=== PATIENT | female | born 1975 ===

== ENCOUNTER 2017-06-07 06:27 | Observation (INO) | payer MEDICAID ==
[2017-05-31 13:24] VITALS: BMI 47.4
[2017-06-07] MEDS ORDERED: ePHEDrine 50 mg/ml Inj ONE ×2 (07:17→08:43)
[2017-06-07] MEDS ORDERED: Midazolam 2 MG/2 ML VIAL ONE (07:17)
[2017-06-07] MEDS ORDERED: Propofol 10 mg/ml Inj (20 ML) ONE ×2 (07:17→09:56)
[2017-06-07] MEDS ORDERED: Rocuronium 10 mg/ml (5 ml) ONE (07:18)
[2017-06-07] MEDS ORDERED: Lidocaine 4% (Laryng-O-Jet) Kit MM ONE (07:18)
[2017-06-07] MEDS ORDERED: Succinylcholine 200 mg/10 ml Inj IV ONE (07:18)
[2017-06-07] MEDS ORDERED: Bupivacaine 0.5% Inj(30mL) ONE (07:37)
[2017-06-07] MEDS ORDERED: Lactated Ringer's 1,000 ML IV ONE ×2 (07:50→09:55)
[2017-06-07] MEDS ORDERED: Dexamethasone 4 mg/1 ml ONE (09:01)
[2017-06-07] MEDS ORDERED: Desflurane Inhalation Anesthetic Liq (240 ml) ONE (09:01)
[2017-06-07] MEDS ORDERED: Neostigmine Methylsulfate 3mg/3ml Syringe IV ONE (09:59)
[2017-06-07] MEDS ORDERED: Naloxone 0.4 mg/ml Inj (Adult) IVP PRN (10:37)
[2017-06-07] MEDS ORDERED: Oxycodone/Acetaminophen 5/325 mg Tab PO PRN (10:51)
[2017-06-07] MEDS ORDERED: ceFAZolin 2 GM in Sodium Chloride 0.9% 100 ML IVPB SCH (11:00)
[2017-06-07] MEDS ORDERED: HYDROmorphone 0.5 mg/0.5 ml ISec ONE (11:08)
[2017-06-07] MEDS: HYDROmorphone 0.5 mg/0.5 ml ISec IVP PRN ×2 (11:10→12:35)
--- NOTE | 2017-06-07 13:37 | OP ---
PROCEDURE DATE: PREOPERATIVE DIAGNOSES: Symptomatic fibroid uterus, pelvic pressure, and pain. POSTOPERATIVE DIAGNOSES: Symptomatic fibroid uterus, pelvic pressure, and pain, endometriosis, bladder adhesions, 3 previous deliveries. OPERATIONS PERFORMED: Robotic-assisted hysterectomy and cystoscopy. SURGEON: Mundo Quiros MD FRONT OFFICE DIRECTOR: Ruperto Schneider DO, he was instrumental in the care of the patient. He helped to create exposure, he was helpful in obtaining hemostasis and extract some of the specimen and closure of the patient. Procedure would not have been possible without his assistance. TYPE OF ANESTHESIA: General. ANESTHESIA ADMINISTERED BY: Bhavna Mcdonald MD OPERATIVE FINDINGS: Fibroid uterus, normal ovaries, tubal remnants from previous tubal ligation and endometriosis. CYSTOSCOPY FINDINGS: The dome of the bladder was intact. There is bilateral ureteral efflux of urine. No foreign bodies or masses noted. ESTIMATED BLOOD LOSS: 50 mL. URINE OUTPUT: Duffy catheter put out approximately 600 mL of clear urine. IV FLUID INTAKE: The patient received approximately 1200 mL of D5 in OR intraoperatively. COMPLICATIONS: There were no complications. DESCRIPTION OF PROCEDURE: After informed consent was obtained, the patient was taken to the operating room, where she was then prepped and draped in normal sterile fashion. A weighted-speculum was then inserted into the vagina, cervix was visualized, and gently dilated. The [employer] uterine manipulator was inserted into the uterine cavity. Attention was then turned to the urethra where a Duffy catheter was inserted to monitor the patient's urinary output. Attention was then turned to the abdomen. Marcaine was infused at Willingham's point. A 5 mm incision was made. The abdomen was then tented upward and the Veress needle was introduced into the abdominal cavity, placement was confirmed with a fluid filled syringe. The abdomen was then insufflated to 15 mmHg. A 5 mm port was obtained and inserted into the abdominal cavity. Placement was confirmed with the laparoscope. The abdomen was surveyed with the findings noted above. Attention was then turned to approximately 2 cm superior to the umbilicus. Marcaine was infused and 8 mm incision was made, and a robotic port was introduced into abdominal cavity. Attention was turned to 20 cm right lateral of the umbilicus. An 8 mm incision was made. Robotic port was introduced into abdominal cavity under direct visualization. Approximately 10 cm right and lateral to the umbilicus Marcaine was infused, where 8 mm incision was made and robotic port was introduced under direct visualization. Attention was then turned to approximately 15 mm left and lateral of the umbilicus. Marcaine was infused and 8 mm incision was made and the robotic port was introduced in the abdominal cavity. The patient was then placed in steep Trendelenburg and robot was brought along the patient side and docked without complication. The instruments inserted in the abdomen were the PK dissector, scissor, Alex Suture Cut, and a ProGrasp. Attention was then turned to the right utero-ovarian ligament and serially coagulated and transected with the scissor. Attention was then turned to the round ligament, which in similar fashion was serially coagulated and transected with the scissor. The vesicouterine peritoneum was then undermined with the PK dissector down to the level of the VCare cup anteriorly. Attention was then turned to the posterior aspect of the uterus in fashion. Posterior aspect of the peritoneum was undermined with the PK dissector down to the level of the VCare cup. The uterosacral ligaments were then serially coagulated and transected. The uterine artery was then skeletonized and serially coagulated and transected at the level of the VCare cup. Attention was then turned to the anterior aspect of the uterus. The bladder was then dissected down. There were extensive bladder adhesions from her previous 3 sections. The bladder was dissected away using series of blunt and sharp dissection. Hemostasis was obtained. The bladder was then mobilized downward. Attention was then turned to the right round ligament, where it was serially coagulated and transected. Utero-ovarian ligament was then serially coagulated and transected. The vesicouterine peritoneum was undermined with a PK dissected down to the anterior aspect of the VCare cup. Attention was then turned to the posterior aspect of the peritoneum, which was undermined with the PK dissector and transected with the scissors. The right uterine artery was then skeletonized and serially coagulated with the PK dissector. The cup was then identified anteriorly, posteriorly, and laterally. The colpotomy was made with hot lennox and performed in a circumferential fashion. The uterus and cervix were then amputated from the vagina and delivered vaginally. The vaginal cuff was then repaired with 2-0 Vicryl on a barbed suture in a running fashion. The abdomen was then copiously irrigated and the irrigant was removed from the suction device. Hemostasis was noted. All instruments were then removed from the abdomen and the patient was successfully undocked from the robot. The attention was then turned to the urethra, where a cystoscopy was performed due to the patient's 3 previous sections and an inability to identify the left uterus intraoperatively. The dome of the bladder was noted to be intact. There is bilateral urethral efflux. At this point, the procedure was terminated. Attention was then turned to the abdomen and robotic ports were closed with Dermabond and the patient was awakened from general anesthesia and taken to recovery room in awake and stable condition. All sponge, lap, needle, and instrument counts were correct x2. Mundo Quiros MD
[2017-06-07] MEDS: Lactated Ringer's 1,000 ML IV SCH ×4 (16:13→21:19)
[2017-06-07 16:56] VITALS: RESP 20
[2017-06-07] MEDS: ceFAZolin 2 GM in Sodium Chloride 0.9% 100 ML IVPB SCH (17:22)
[2017-06-08] MEDS: ceFAZolin 2 GM in Sodium Chloride 0.9% 100 ML IVPB SCH ×2 (00:45→10:45)
[2017-06-08] MEDS: Lactated Ringer's 1,000 ML IV SCH ×2 (00:47→02:51)
[2017-06-08 07:35] VITALS: BP 115/73; PULSE 62; TEMP 98.2; O2SAT 100
[2017-06-08 07:48] LABS: HEMATOCRIT 28.2 % (34.0-47.0); MEAN CELL VOLUME 88.2 fl (81.0-99.0); MEAN CORPUSCULAR HEMOGLOBIN 29.3 pg (27.0-31.0); MEAN CORPUSCULAR HGB CONC 33.3 g/dL (33.0-37.0); RED CELL DISTRIBUTION WIDTH 13.4 % (11.5-14.5); WHITE BLOOD COUNT 13.1 K/uL (4.8-10.8)
[2017-06-08] MEDS ORDERED: Simethicone 80 mg Chewtab PO PRN (12:28)
--- NOTE | 2017-06-08 13:19 | CP.PCM.PN ---
Subjective - Date & Time of Evaluation Date of Evaluation: 06/08/17 Time of Evaluation: 12:58 - Subjective Subjective: Patient is a 42 yo so RASCH POD #1, doing well, denies nausea, abdominal pain well controlled, no CP, no SOB, ambulating well, no flatus, voiding well, tolerating PO liquids. Objective - Vital Signs/Intake and Output Vital Signs (last 24 hours): Temp Pulse Resp BP Pulse Ox 98.2 F 62 20 115/73 100 06/08/17 07:35 06/08/17 07:35 06/08/17 07:35 06/08/17 07:35 06/08/17 07:35 Intake and Output: 06/08/17 06/08/17 06:59 18:59 Intake Total 2200 Output Total 2100 Balance 100 - Medications Medications: Current Medications Hydromorphone HCl (Dilaudid) 0.5 mg IVP Q10M PRN PRN Reason: Pain, moderate (4-7) Last Admin: 06/07/17 12:35 Dose: 0.5 mg Lactated Ringer's (Lactated Ringer's) 1,000 mls @ 125 mls/hr IV .Q8H MARY Last Admin: 06/08/17 02:51 Dose: Not Given Ibuprofen (Motrin Tab) 600 mg PO Q8 PRN PRN Reason: Pain, moderate (4-7) Naloxone HCl (Narcan) 0.1 mg IVP Q2M PRN PRN Reason: Pain, moderate (4-7) Ondansetron HCl (Zofran Inj) 4 mg IVP Q8 PRN PRN Reason: Nausea/Vomiting Oxycodone/Acetaminophen (Percocet 5/325 Mg Tab) 1 tab PO Q4 PRN PRN Reason: Pain, moderate (4-7) Stop: 06/10/17 10:52 Last Admin: 06/08/17 10:45 Dose: 1 tab Simethicone (Mylicon Chew Tab) 80 mg PO TID PRN PRN Reason: Flatulence - Labs Labs: 06/08/17 05:30 - Head Exam Head Exam: ATRAUMATIC, NORMAL INSPECTION - Eye Exam Pupil Exam: NORMAL ACCOMODATION - Neck Exam Neck Exam: Normal Inspection - Respiratory Exam Respiratory Exam: NORMAL BREATHING PATTERN - Cardiovascular Exam Cardiovascular Exam: REGULAR RHYTHM - GI/Abdominal Exam GI & Abdominal Exam: Soft, Normal Bowel Sounds Additional comments: soft, obese, incision clean/dry/intact, non distended, appropriately tender - Extremities Exam Extremities Exam: Normal Inspection - Skin Skin Exam: Normal Color Assessment and Plan - Assessment and Plan (Free Text) Assessment: A/P 42 yo s/p RASCH POD #1 healing well 1. Patient has not had flatus yet this morning, but otherwise patient is healing well. Will feed patient regular diet and have patient ambulate. once patient is passing gas, patient may be discharged 2. Patient otherwise is stable, discharged instructions reviewed
== END 2017-06-08 15:35 | disposition home or self-care (01) ==
LOC: H.OPSURG 06:27 → H.MEDSURG1 10:51
PROVIDERS: ADMIT Obstetrics & Gynecology Gynecology; ATTEND Obstetrics & Gynecology Gynecology
DX: D25.2 Subserosal leiomyoma of uterus (principal); N80.0 Endometriosis of uterus; N32.89 Other specified disorders of bladder
CPT/HCPCS: 36415; 58550; 85027; 88305; 94770; G0378; J0330; J0690; J1100; J1170; J2001; J2250; J2405; J2704; J2710; J3010; J7120; S2900